=== PATIENT | female | born 1995 ===

== ENCOUNTER 2017-12-01 20:46 | Inpatient (IN) | payer MEDICAID ==
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
[2017-12-01 22:09] LABS: BASO % 0.5 % (0.0-2.0); EOS # 0.1 K/uL (0.0-0.7); EOS % 1.2 % (0.0-4.0); HEMOGLOBIN 13.8 g/dL (12.0-16.0); LYMPH # 1.4 K/uL (1.0-4.3); LYMPH % 27.1 % (20.0-40.0); MEAN CELL VOLUME 91.1 fl (81.0-99.0); MEAN CORPUSCULAR HEMOGLOBIN 30.7 pg (27.0-31.0); MEAN CORPUSCULAR HGB CONC 33.7 g/dL (33.0-37.0); MEAN PLATELET VOLUME 9.3 fl (7.2-11.7); MONO # 0.2 K/uL (0.0-0.8); MONO % 4.4 % (0.0-10.0); NEUT # 3.3 K/uL (1.8-7.0); NEUT % 66.8 % (50.0-75.0); RBC 4.52 Mil/uL (3.80-5.20); RED CELL DISTRIBUTION WIDTH 12.8 % (11.5-14.5)
[2017-12-01 22:20] LABS: BLOOD UREA NITROGEN 10 mg/dl (7-17); CALCIUM 8.8 mg/dL (8.4-10.2); GFR AFRICAN-AMERICAN > 60; GFR NON-AFRICAN AMERICAN > 60
[2017-12-01 22:23] LABS: ACETAMINOPHEN < 10.0 ug/ml (10.0-30.0); SALICYLATE < 1.0 mg/dl
--- NOTE | 2017-12-02 07:33 | ED PDOC ---
- Laboratory Results Result Diagrams: 12/01/17 22:05 12/01/17 22:05 - ECG O2 Sat by Pulse Oximetry: 100 Medical Decision Making Medical Decision Making: Patient endorsed by Dr. Stoddadr. Patient is pending crisis evaluation. patient seen by crisis and admitted to psych for bipolar disorder. Disposition Doctor Will See Patient In The: Hospital - Clinical Impression Clinical Impression: Bipolar 1 disorder - POA Present On Arrival: None - Disposition Disposition: Admitted as In-Patient Disposition Time: 08:55 Condition: STABLE Instructions: Bipolar Disorder Forms: [facility] ([place])
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
[2017-12-02 12:32] LABS: SQUAMOUS EPITHIAL 43 /hpf (0-5); URINE BACTERIA RARE (<OCC); URINE BILIRUBIN NEGATIVE (NEGATIVE); URINE BLOOD LARGE (NEGATIVE); URINE CLARITY SLIGHTY-CLOUDY (Clear); URINE COLOR RED (YELLOW); URINE GLUCOSE (UA) 50 mg/dL (Normal); URINE LEUKOCYTE ESTERASE NEG Leu/uL (Negative); URINE PROTEIN 100 mg/dL (NEGATIVE); URINE UROBILINOGEN 0.2-1.0 mg/dL (0.2-1.0)
[2017-12-02 12:36] LABS: BARBITURATES, UR NEGATIVE (NEGATIVE); BENZODIAZEPINES, UR NEGATIVE (NEGATIVE); OPIATES, UR NEGATIVE (NEGATIVE); PHENCYCLIDINE, UR NEGATIVE (NEGATIVE)
[2017-12-02] MEDS ORDERED: Tmp-Smz 800 mg-160 mg DS Tab PO STA (12:43)
[2017-12-02] MEDS ORDERED: Tmp-Smz 800 mg-160 mg DS Tab ONE (13:35)
[2017-12-02] MEDS ORDERED: Magnesium Hydroxide Susp 30 ml UD PO PRN (16:01)
[2017-12-02] MEDS ORDERED: Alum-Mag Hydrox-Simethicone Susp (30 mL) PO PRN (16:01)
[2017-12-02] MEDS ORDERED: DiphenhydrAMINE 50 mg/ml Inj IM PRN (16:01)
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
[2017-12-02 16:51] VITALS: RESP 18
--- NOTE | 2017-12-02 19:50 | PCM.BM ---
<Emmanuel Huang - Last Filed: 12/02/17 19:48> Treatment Plan Problems - Problems identified on initial assessmt Hopelessness/Helplessness Date Initiated: 12/02/17 Time Initiated: 19:00 Assessment reference: NA Status: Active Treatment assets and liabiliti Patient Assests: cooperative, self-reliant, ADL independent, physically healthy Patient Liabilities: relationship conflicts, language/speech - Milieu Protocol Maintain good personal hygiene: every shift Encourage regular showers, every shift Remind patient to perform daily oral care, every shift Assist patient to perform ADL's Maintain personal safety: every shift Educate patient to report safety concerns to staff, every shift Monitor environment for contraband/sharps Medication safety: Monitor for expected outcome, potential side effects: every shift, Assess barriers to learning: every shift, Assess readiness for medication education: every shift Milieu Narrative: start ativan 2mg tid and monitor vitals for alcohol withdrawal signs and symptoms trazodone 50mg qhs motivational group and supportive therapy Discharge/Continuing Care - Treatment Team Participation Patient/Family/SO Statement: start ativan 2mg tid and monitor vitals for alcohol withdrawal signs and symptoms trazodone 50mg qhs motivational group and supportive therapy <Tremaine Balderrama - Last Filed: 12/04/17 19:26> Family Contact Family involvement: Family/SO is involved Family contact: Patient declines to allow family contact at present Family contact name: Pt refused. - Goals for Treatment Patient goals for treatment: Pt denied goals as she feels "better." Discharge/Continuing Care - Education Needs Education Needs: Patient Medication, Patient Diagnosis/Disease Process, Patient Coping Skills, Patient Aftercare Safety Plan - Discharge Discharge Criteria: Tolerates medication w/o severe side effects, Free of Suicidal thoughts, Free of agitation, Normal sleep pattern, Ability to care for self, Reduction of target symptoms Discharge to:: Home, With Family <Debbie Rivera - Last Filed: 12/05/17 15:14> Treatment assets and liabiliti Patient Assests: adapts well, cooperative, motivated, self-reliant, ADL independent, good support system (limited : identified as primary support), negotiates basic needs, cognitively intact Patient Liabilities: relationship conflicts, substance abuse, language/speech ( primarily divehi speaking) Family Contact Family involvement: Family/SO is involved Family contact: Patient agrees to contact, Other Family contact name: Patient has provided tech writer with consent to contact prior to d/c Family contacted how many times per week?: 2 - Goals for Treatment Patient goals for treatment: Patient to continue stabilization on 3NP through medication management and group/supportive therapy to address sxs of depression and eliminate SI. Patient to be encouraged to attend groups regularly to promote self-awareness, sobriety, and improve insight, compliance, coping skills and self-esteem. Patient to be provided with referral for appropriate level of aftercare to reduce risk of future hospitalizations and ensure safety in the community. Discharge/Continuing Care - Education Needs Education Needs: Family Medication, Family Diagnosis/Disease Process, Family Coping Skills, Family Community resources, Family Aftercare Safety Plan, Patient Community resources - Treatment Team Participation Patient/Family/SO Statement: Patient invited to tx team this morning to discuss precursors to hospitalization , progress on 3NP and tx goals. Pt. explained periods of sadness since of sister almost a year ago, clarifying that suicidal thoughts are only experienced when intoxicated. Pt. reports long hx of ETOH abuse with several periods of sobriety maintained for 2-3 months. Pt. denied hx of inpatient or outpatient substance abuse tx. Pt. reported first being dxed with bipolar disorder, depressed type 4 years ago by an outpatient psychiatrist. Pt. denied hx of episodes of gael. Pt. reported seeking outpatient mental health services after her sisters passing but being told she was inappropriate for mental health tx until sobriety could be maintained. Pt. currently not agreeable to inpatient rehab referrals, as recommended by tx team. However, patient agreeable to outpatient mental health and substance abuse services. Patient reported significant improvement in sxs of depression since admission. . Pt. reported improved sleep and denied any appetite disturbances. Pt. somewhat withdrawn but visible on 3NP. Pt. denied SI/HI, was able to contract for safety on 3NP and expressed remorse regarding precursors to hospitalizations. Affect remains tearful and depressed but to a lesser degree than upon stabilization. Pt. discharge focused and was brought into team with a 48 hour notice in effect. Benefits of further stabilization on 3NP for purposes of medication management and appropriate outpatient referrals discussed at length. Pt. receptive to feedback and withdrew 48 hour notice. Anticipated discharge date of 12/07. Validation and emotional support provided. Pt. made aware of staff availability. 12/05/17 15:16 Discussed with Family/SO: No Was Patient/Family/SO present at Treatment Team Meeting: Yes <Melissa Brannon - Last Filed: 12/06/17 14:21> - Diagnosis (1) Alcohol abuse Status: Acute Interventions: motivational therapy 12/06/17 14:21
[2017-12-03 03:37] VITALS: O2SAT 96
[2017-12-03 09:02] LABS: T4 9.43 ug/dl (5.5-11.0)
--- NOTE | 2017-12-03 09:40 | PCM.PYCHPN ---
Psychiatric Progress Note - Psychiatric Progress Note Patient seen today, length of contact: pt seen and evaluated. Patient Chief Complaint: pt remained anxious and depressed because of pain in the bruises but still a poor historian and still has poor insight about al ohol abuse .pt denies suicidal ideation.. Medication Change: Yes (start zoloft 25 mg daily) Mental Status Examination - Cognitive Function Orientation: Person, Place, Situation Memory: Intact Attention: Poor Concentration: Poor Association: WNL Fund of Knowledge: WNL - Mood Mood: Depressed, Anxious - Affect Affect: Depressed - Formal Thought Process Formal Thought Process: Circumstantial - Suicidal Ideation Suicidal Ideation: No - Homicidal Ideation Homicidal Ideation: No Goal/Treatment Plan - Goal/Treatment Plan Progress Toward Problem(s) and Goals/Treatment Plan: will start pt on zoloft and engage pt in therapy and groups. continue Alcohol detox. relapse prevention and referral to alcohol rehab
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
[2017-12-03] MEDS: Bacitracin OINT 15GM TOP SCH (17:49)
[2017-12-04] MEDS: Bacitracin OINT 15GM TOP SCH ×2 (08:49→17:38)
[2017-12-05] MEDS: Bacitracin OINT 15GM TOP SCH ×2 (12:33→17:24)
--- NOTE | 2017-12-05 15:08 | PCM.PYCHPN ---
Psychiatric Progress Note - Psychiatric Progress Note Patient seen today, length of contact: pt seen and evaluated. Patient Chief Complaint: I am depressed since my sister Problems Identified/Issues Discussed: pt evaluated with treatment team, relates her depression to the loss of her sister, pt continues to minimize her alcohol use, motivational therapy provided in reference to the effect of alcohol use on her current depression, discussed with patient referral to inpatient rehab, pt declined. agreed to start outpatient program, denied side effects of zoloft pt denied any current thoughts of self harm, compliant with treatment Medical Problems: pt denied previous hospitaliztions DSM 5 Symptoms Update: alcohol induced mood disorder with depressive features alcohol use disorder depression Medication Change: Yes (discontinue standing ativan) Medical Record Reviewed: Yes Mental Status Examination - Cognitive Function Orientation: Person, Place, Situation Memory: Intact Attention: WNL Concentration: WNL Association: WNL Fund of Knowledge: WN Decription of patient's judgement and insights: poor insight - Mood Mood: Depressed, Anxious - Affect Affect: Constricted, Depressed - Speech Speech: Soft - Formal Thought Process Formal Thought Process: Circumstantial Psychotic Thoughts and Behaviors: pt denied psychotic symptoms, non elicited - Suicidal Ideation Suicidal Ideation: No - Homicidal Ideation Homicidal Ideation: No Goal/Treatment Plan - Goal/Treatment Plan Need for Continued Stay: Severe depression anxiety, Discharge may exacerbated symptoms Progress Toward Problem(s) and Goals/Treatment Plan: discontinue standing ativan, ativan 0.5mg tid prn zoloft 25mg daily trazodone 50mg qhs motivational group and supportive therapy
[2017-12-06] MEDS: Bacitracin OINT 15GM TOP SCH ×2 (09:51→17:44)
--- NOTE | 2017-12-06 14:28 | PCM.PYCHPN ---
Psychiatric Progress Note - Psychiatric Progress Note Patient seen today, length of contact: pt seen and evaluated. Patient Chief Complaint: I am better, I will follow up with the program Problems Identified/Issues Discussed: pt evaluated , reports better mood, more visible n the unit, interacting with other patients, brighter affect , moptivational therapy provided n reference to alcohol use , pt will attend outpatient [facility] on discharge, no reported side effects of zoloft pt denied any current thoughts of self harm, compliant with treatment Medical Problems: pt denied previous hospitaliztions DSM 5 Symptoms Update: alcohol induced mood disorder alcohol abuse depression Medication Change: No (discontinue standing ativan) Medical Record Reviewed: Yes Mental Status Examination - Cognitive Function Orientation: Person, Place, Situation Memory: Intact Attention: WNL Concentration: WNL Association: WNL Fund of Knowledge: WN Decription of patient's judgement and insights: poor insight - Mood Mood: Depressed, Anxious - Affect Affect: Constricted, Depressed - Speech Speech: Soft - Formal Thought Process Formal Thought Process: Circumstantial Psychotic Thoughts and Behaviors: pt denied psychotic symptoms, non elicited - Suicidal Ideation Suicidal Ideation: No - Homicidal Ideation Homicidal Ideation: No Goal/Treatment Plan - Goal/Treatment Plan Need for Continued Stay: Severe depression anxiety, Discharge may exacerbated symptoms Progress Toward Problem(s) and Goals/Treatment Plan: zoloft 25mg daily trazodone 50mg qhs motivational group and supportive therapy Estimated Date of D/C: 12/07/17
[2017-12-06 16:59] VITALS: BP 106/63; PULSE 65; TEMP 98.2
[2017-12-07] MEDS: Bacitracin OINT 15GM TOP SCH (09:31)
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
== END 2017-12-07 11:48 | disposition home or self-care (01) | DRG 751 ==
LOC: H.ER 20:46 → H.ERHOLD 12-02 08:49 → H.PSYCH 12-02 14:52
PROVIDERS: ADMIT Psychiatry & Neurology Psychiatry; ATTEND Psychiatry & Neurology Psychiatry
PROC: HZ52ZZZ Individual Psychotherapy for Substance Abuse Treatment, Cognitive-Behavioral (ICD-10-PCS; principal; 2017-12-02)
PROC: GZHZZZZ Group Psychotherapy (ICD-10-PCS; 2017-12-02)
PROC: GZ58ZZZ Individual Psychotherapy, Cognitive-Behavioral (ICD-10-PCS; 2017-12-02)
DX: F10.14 Alcohol abuse with alcohol-induced mood disorder (principal); F10.129 Alcohol abuse with intoxication, unspecified; Y90.8 Blood alcohol level of 240 mg/100 ml or more; F31.9 Bipolar disorder, unspecified; R45.851 Suicidal ideations; G47.00 Insomnia, unspecified; S02.2XXA Fracture of nasal bones, initial encounter for closed fracture; Z78.1 Physical restraint status; Z91.5 Personal history of self-harm; Y04.2XXA Assault by strike against or bumped into by another person, initial encounter; Z79.899 Other long term (current) drug therapy; Z87.891 Personal history of nicotine dependence; Y92.89 Other specified places as the place of occurrence of the external cause